=== PATIENT | male | born 1950 | race Caucasian/White ===

== ENCOUNTER 2017-12-29 05:43 | Emergency (ER) | payer MEDICARE, SELFPAY ==
[2017-12-29 05:44] VITALS: BP 162/104; PULSE 90; RESP 17; TEMP 36.8; O2SAT 96; BMI 29.9
--- NOTE | 2017-12-29 06:20 | ED.VISSUMM ---
- ER Visit Summary Date of Service: 12/29/17 Chief Complaint: [] Constipation History of Present Illness: The patient is a 67 M complaining of constipation and bloating for the last 3-1/2 days. Normally he has bowel movement 1-3 times per day. He has been on vacation and eating a different diet. He denies any significant abdominal pain. No nausea or vomiting. He feels like he has to have a bowel movement but cannot. He tried MiraLAX one time and one bottle of magnesium citrate yesterday p.m. with no relief. Physical Examination: Vital signs reviewed General: Well-nourished well-developed Head: Normocephalic atraumatic Eyes: Pupils equal round and reactive to light extraocular movements intact ENT: TMs clear no hemotympanum no trauma Neck: Nontender full range of motion Cardiovascular: Regular rate rhythm no murmurs normal S1-S2 Respiratory: No distress clear to auscultation bilaterally chest nontender Abdomen: Soft mild discomfort left lower abdomen nondistended normal bowel sounds no masses Back: Nontender no CVA tenderness Extremities: Nontender active range of motion ?4 extremities no trauma Skin: Normal color no trauma Neuro alert oriented cranial nerves II through XII intact normal strength sensation reflexes Test Results: [] Emergency Department Course and Treatment: [] Given soapsuds enema. Patient had a good bowel movement afterwards and will be discharged. He will continue MiraLAX as needed Treatment Plan: [] Disposition: [] Impression: [] Constipation This note was generated with [facility] dictation software. It may contain incorrect words, spelling, and punctuation that were not noted in review of the chart prior to signing ED Disposition - Plan for ED Patient: Disposition: Home or Assisted Living Chief Complaint: Constipation Instructions: ED Constipation Referrals: Tyler Espinosa DO [Primary Care Provider] -
[2017-12-29 06:27] VITALS: BP 153/78; PULSE 80; RESP 17; O2SAT 99
== END 2017-12-29 06:32 | disposition home or self-care (01) ==
LOC: ED 06:30
PROVIDERS: Emergency Provider Emergency Medicine; Family Provider Family Medicine; PCP Family Medicine
DX: K59.00 Constipation, unspecified (principal); Z86.73 Personal history of transient ischemic attack (TIA), and cerebral infarction without residual deficits
CPT/HCPCS: 99284

== ENCOUNTER → 2017-12-31 14:17 | Outpatient (CLI) | payer MEDICARE, SELFPAY ==
--- NOTE | 2017-12-31 14:21 | RAD_ITS ---
STUDY: X-RAY - ABDOMEN/PELVIS REASON FOR EXAM: Male, 67 years old. Constipation TECHNIQUE: Two AP supine views of the abdomen and pelvis. COMPARISON: None. FINDINGS: Normal visualized lung bases. There is an unremarkable bowel gas pattern. There is no demonstrated free abdominal air. The visualized liver, spleen and kidneys are grossly normal in size and morphology. Normal soft tissue structures. There are diffuse degenerative changes of the visualized lumbar spine. RAD/Abdomen Single View IMPRESSION: No significant amount of retained fecal material or obstruction. Electronically Signed: Mine Manzanares MD at 7:47 EST , Service support ,
== END ==
PROVIDERS: Family Provider Family Medicine; PCP Family Medicine; Visit Provider Family Medicine
DX: K59.00 Constipation, unspecified (principal)
CPT/HCPCS: 74018

== ENCOUNTER → 2018-10-07 15:39 | Outpatient (CLI) | payer MEDICARE, SELFPAY ==
[2018-10-07 17:41] LABS: Absolute Lymphocyte Count 2.61 X10^3/ul (0.83-4.51); Basophil# 0.04 X10^3/uL; Basophil% 0.4 % (0-1); Eosinophil# 0.21 X10^3/uL; Eosinophils% 2.2 % (0-5); Hematocrit 42.3 % (40-54); Hemoglobin 13.9 g/dl (13.0-16.5); Lymphocyte # 2.61 X10^3/ul (4.0); Lymphocyte % 27.2 % (19-41); Mean Corp Hgb Conc 32.9 g/gl (32-36); Mean Corpuscular Hgb 30.8 pg (27.0-32.0); Mean Corpuscular Volume 93.6 fL (80-94); Mean Platelet Vol. 10.8 fl (6.2-12.0); Monocyte# 0.72 X10^3/uL; Monocyte% 7.5 % (0-10); Neutrophil # 5.99 X10^3/uL (2.7-7.7); Neutrophil % 62.5 % (47-70); Platelet Count 236 K/mm3 (150-450); RBC Distribution Width CV 12.3 % (11.6-14.6); RBC Distribution Width SD 41.3 fl (35.1-43.9); Red Blood Count 4.52 M/mm3 (4.6-6.2); White Blood Count 9.6 K/mm3 (4.4-11.0)
[2018-10-07 17:42] LABS: Hemoglobin A1c 5.6 % (4.2-6.3)
[2018-10-07 17:43] LABS: POSITIVE COUNT NO; POSITIVE DIFFERENTIAL NO; POSITIVE MORPHOLOGY NO
[2018-10-07 17:50] LABS: ALB/GLOB Ratio 0.9 RATIO (0.9-2.4); AST(SGOT) 47 U/L (15-37); Alanine Aminotransfer ALT/SGPT 64 U/L (16-61); Albumin, Serum 3.7 g/dL (3.2-5.0); Alkaline Phosphatase 87 U/L (45-117); Anion Gap 10 (5-15); BUN 17 mg/dL (7-18); BUN/Creat Ratio 16.3 RATIO (10-20); Chloride 107 mmol/L (98-107); Cholesterol 166 mg/dL (200); Creatinine, Serum 1.04 mg/dL (0.70-1.30); EST Glomerular Filtration Rate 76 mL/min (>60); Est Glom Filt Rate - Afr Amer 92 mL/min (>60); Globulin 3.9 g/dL (2.2-4.2); Glucose 83 mg/dL (74-106); High Density Lipoprotein 37 mg/dL; PSA,Total - Annual Screen 1.05 ng/mL (0.00-4.00); Potassium 4.2 mmol/L (3.5-5.1); Protein, Total 7.6 g/dL (6.4-8.2); Sodium Level 142 mmol/L (136-145); T4 Free Direct 0.88 ng/dL (0.76-1.46); Thyroid Stim Hormone (TSH) 8.48 uIU/mL (0.358-3.74); Triglycerides 299 mg/dL; Very Low Density Lipoprotein 60 mg/dL (5-40)
--- OUTSIDE RECORDS SUMMARY | 2018-11-19 14:13 | XMS RPT_ITS ---
:1950 Author Organization OHIP Care Team Providers Name Role Phone Tyler Espinosa Primary Care Unavailable Tyson Booth Attending Unavailable Tyler Espinosa Attending Unavailable Tyler Espinosa Referring Unavailable Tyler Espinosa Primary Care Unavailable Michelle Ludwig Attending Unavailable Tyler Espinosa Referring Unavailable Tyler Espinosa Attending Unavailable Tyler Espinosa Primary Care Unavailable PROBLEMS PROBLEMS DATE TYPE CONDITION / CODE ATTENDING STATUS SOURCE 06/14/2018 Unknown Z02.1 - [facility] Rep[facility] Z02.1(ICD-10) 03/14/2018 Unknown K59.00 - [place], [facility] K59.00(ICD-10) Repository PROCEDURES PROCEDURES No Procedure Records FoundRESULTS RESULTS HEMOGLOBIN A1C Collected: 10/07/2018 Status: F Source: GAVI 3:46 PM [facility] REPOSITORY TYPE CODE TESTS RESULT OUT OF RANGE REFERENCE UNITS LAB L501.9985 4.2-6.3 % Normal HGB A1C 5.6 Performed By: #### L501.9985 #### [facility] [address] [place], [address] CBC W/DIFF, AUTOMATED Collected: 10/07/2018 Status: F Source: GAVI 3:46 PM [facility] REPOSITORY TYPE CODE TESTS RESULT OUT OF RANGE REFERENCE UNITS LAB L100.1000 4.4-11.0 K/mm3 Normal WBC 9.6 LAB L100.1200 4.6-6.2 M/mm3 Low RBC 4.52 LAB L100.1300 13.0-16.5 g/dl Normal HGB 13.9 LAB L100.1400 40-54 % Normal HCT 42.3 LAB L100.1500 80-94 fL Normal MCV 93.6 LAB L100.1600 27.0-32.0 pg Normal MCH 30.8 LAB L100.1700 32-36 g/gl Normal MCHC 32.9 LAB L100.1810 11.6-14.6 % Normal RDW CV 12.3 LAB L100.1820 35.1-43.9 fl Normal RDW SD 41.3 LAB L100.1900 150-450 K/mm3 Normal PLT 236 LAB L100.2000 6.2-12.0 fl Normal MPV 10.8 LAB L100.2100 47-70 % Normal NEUT% 62.5 LAB L100.2200 19-41 % Normal LY% 27.2 LAB L100.2300 0-10 % Normal MONO% 7.5 LAB L100.2400 0-5 % Normal EO% 2.2 LAB L100.2500 0-1 % Normal BASO% 0.4 LAB L100.2550 0.0-0.9 % Normal IM GRAN % 0.200 Result Comment: IG% - Immature Granulocytes (promyelocytes, myelocytes and metamyelocytes) > 1% indicates that a LEFT SHIFT is Present. LAB L100.2620 2.0-7.7 X10 3/uL Normal Absolute Neut 6.0 LAB L100.2720 0.83-4.51 X10 3/ul Normal Absolute Lymph 2.61 Performed By: #### L100.0100 #### [facility] [address] [place], [place], [address] COMPREHENSIVE METABOLIC Collected: 10/07/2018 Status: F Source: GAVI MARIE 3:46 PM [facility] REPOSITORY TYPE CODE TESTS RESULT OUT OF RANGE REFERENCE UNITS LAB L501.0100 74-106 mg/dL Normal GLU 83 Result Comment: Please note revised GLUCOSE reference range effective 2017. LAB L501.1000 7-18 mg/dL Normal BUN 17 LAB L501.1100 0.70-1.30 mg/dL Normal CREAT,SERUM 1.04 Result Comment: The validity of the calculated GFR AND GFRAA in patients over 70 years has not been determined. Clinical correlation is essential. LAB L501.1110 >60 mL/min Normal EST GFR 76 Result Comment: Non- GFR Calc LAB L501.1115 >60 mL/min Normal EST GFR - AA 92 Result Comment: GFR Calc LAB L501.1300 10-20 RATIO Normal BUN/CRE 16.3 LAB L501.1500 6.4-8.2 g/dL T Normal PROT 7.6 LAB L501.1800 3.2-5.0 g/dL Normal ALB 3.7 LAB L501.1950 2.2-4.2 g/dL Normal GLOB 3.9 LAB L501.2000 0.9-2.4 RATIO Normal A/G 0.9 LAB L501.2200 8.5-10.1 mg/dL CA Normal 9.0 LAB L501.4100 15-37 U/L High AST 47 LAB L501.4305 45-117 U/L Normal ALK P 87 LAB L501.4405 16-61 U/L High ALT 64 LAB L501.4600 0.20-1.00 mg/dL T Normal BILI 0.60 LAB L501.5300 136-145 mmol/L NA Normal 142 LAB L501.5600 3.5-5.1 mmol/L K Normal 4.2 LAB L501.5900 98-107 mmol/L CL Normal 107 LAB L501.6100 21.0-32.0 mmol/L Normal CO2 25.0 LAB L501.6200 5-15 Normal GAP 10 Performed By: #### L500.4050, L500.4100, L501.9520, L501.9910, L506.0400 #### [facility] [address] [place], [place], [id number] LIPID PROFILE Collected: 10/07/2018 Status: F Source: GAVI 3:46 PM [facility] REPOSITORY TYPE CODE TESTS RESULT OUT OF RANGE REFERENCE UNITS LAB L501.4900 200 mg/dL Normal CHOL 166 Result Comment: <200 mg/dL Desirable 200-240 mg/dL Borderline >240 mg/dL High Risk LAB L501.5000 mg/dL High TRIG 299 Result Comment: The drugs N-Acetylcysteine and Metamizole may falsely depress this assay. Serum Triglycerides Reference Interval Normal <150 mg/dL Borderline high 150 - 199 mg/dL High 200 - 499 mg/dL Very High > or = 500 mg/dL LAB L501.6400 mg/dL Low HDL 37 Result Comment: The drugs N-Acetylcysteine and Metamizole may falsely depress this assay. Reference Range HDL <40 mg/dL Low HDL Cholesterol HDL >or= 60 mg/dL High HDL Cholesterol LAB L501.6500 0-130 mg/dL Normal LDL 69 LAB L501.6600 5-40 mg/dL High VLDL 60 Performed By: #### L500.4050, L500.4100, L501.9520, L501.9910, L506.0400 #### [facility] [address] [place], [place], [id number] THYROID STIM HORMONE Collected: 10/07/2018 Status: F Source: GAVI (TSH) 3:46 PM [facility] REPOSITORY TYPE CODE TESTS RESULT OUT OF RANGE REFERENCE UNITS LAB L501.9520 0.358-3.74 uIU/mL High TSH 8.48 Performed By: #### L500.4050, L500.4100, L501.9520, L501.9910, L506.0400 #### [facility] [address] [place], [address] PSA,TOTAL - ANNUAL Collected: 10/07/2018 Status: F Source: GAVI SCREEN 3:46 PM [facility] REPOSITORY TYPE CODE TESTS RESULT OUT OF RANGE REFERENCE UNITS LAB L501.9910 0.00-4.00 ng/mL Normal PSA,TOT 1.05 SCREEN Result Comment: This test was performed using the TPSA assay method for the [employer] network chemistry system. Values obtained with different assay methods cannot be used interchangably. When changing PSA assays in the course of monitoring a patient, additional sequential testing should be carried out to confirm baseline values. Performed By: #### L500.4050, L500.4100, L501.9520, L501.9910, L506.0400 #### [facility] [address] [place], [place], [address] T4 FREE DIRECT Collected: 10/07/2018 Status: F Source: [place] 3:46 PM [facility] REPOSITORY TYPE CODE TESTS RESULT OUT OF RANGE REFERENCE UNITS LAB L506.0400 0.76-1.46 ng/dL Normal T4 FREE 0.88 DIRECT Performed By: #### L500.4050, L500.4100, L501.9520, L501.9910, L506.0400 #### [facility] [address] [place], [place], [address] URGENT CARE VISIT Observed: 06/14/2018 Status: F Source: [place] REPORT 2:34 PM [facility] REPOSITORY [facility] [address] [place] [address] OFFICE VISIT Date of Service: 06/14/18 MR#: [id number] Acct: [id number] Name: SHAWNQUITAVIVIENNE Rep #: [id number] : 1950 Provider: MANDEEP Ludwig Age/Sex: 67/M [place] [facility] Status: Signed Intake Intake Visit Reasons: PRE [facility] Chief Complaint: pre-employment physical Allergies No Known Allergies Allergy (Verified 06/15/17 11:28) Medications Atorvastatin Calcium [Lipitor] 40 mg PO QHS #90 tab 01/20/16 [Rx Confirmed 06/15/17] Aspirin [Aspirin, Baby] 81 mg PO DAILY 06/15/17 [History Confirmed 06/15/17] Blue-Green Algae [Spirulina] 6 tab PO DAILY 06/15/17 [History Confirmed 06/15/17] Co Q10 200 [Co Q-10] 100 mg PO DAILY 06/15/17 [History Confirmed 06/15/17] Lactobacillus Combo No.11 [Probiotic] 1 ea PO QHS 06/15/17 [History Confirmed 06/15/17] Levothyroxine [Synthroid] 100 mcg PO DAILY 06/15/17 [History Confirmed 06/15/17] Lisinopril [Zestril] 10 mg PO DAILY 06/15/17 [History Confirmed 06/15/17] Multivitamin [Multiple Vitamins] 1 ea PO DAILY 06/15/17 [History Confirmed 06/15/17] Super Beta Prostate 1 tab PO DAILY 06/15/17 [History] Turmeric/Turmeric Root Extract [Turmeric] 200 mg PO DAILY 06/15/17 [History Confirmed 06/15/17] PFSH Social History Smoking Status: Never smoker HPI HPI Chief Complaint: pre-employment physical Details: VIVIENNE ROMERO, is a 67 M who presents to the office today for a pre-employment physical. Please see completed history and physical forms scanned to his chart. Office Procedures Physical Exam Coding PE Coding Pre-employment PE: Yes Assessment AND Plan Problems 1. Pre-employment examination Z02.1 Plan Patient is cleared for work without restrictions. 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 He worked up until 2 years ago and then took time off after a family crisis until now. Coding Level of Care Code No Charge Diagnoses Pre-employment examination Z02.1 Additional Codes PE Coding - Pre-employment PE: Yes (PREPE) 06/14/18 1434 <Electronically signed by Michelle KAUFMAN> Date Michelle KAUFMAN Cosigner Signature: Date (if applicable) CC: ABDOMEN SINGLE VIEW Observed: 12/31/2017 Status: F Source: GAVI 2:21 PM [facility] REPOSITORY [facility] Imaging Services [address] [place] [address] [place] [address] Abdomen Single View MR#: [id number] Acct: [id number] Name: VIVIENNE ROMERO Rep #: [id number] : 1950 M 67 From: Mine Manzanares MD PCP: Tyler Espinosa DO Status: REG CLI Study: Abdomen Single View Date of Exam: 12/31/17 Exam# [id number] Ordering Dr: Tyler Espinosa DO STUDY: X-RAY - ABDOMEN/PELVIS REASON FOR EXAM: Male, 67 years old. Constipation TECHNIQUE: Two AP supine views of the abdomen and pelvis. COMPARISON: None. FINDINGS: Normal visualized lung bases. There is an unremarkable bowel gas pattern. There is no demonstrated free abdominal air. The visualized liver, spleen and kidneys are grossly normal in size and morphology. Normal soft tissue structures. There are diffuse degenerative changes of the visualized lumbar spine. RAD/Abdomen Single View IMPRESSION: No significant amount of retained fecal material or obstruction. Electronically Signed: Mine Manzanares MD at 7:47 EST , Service support , CC: Tyler Espinosa DO Finish Specialist: Signed EMERGENCY DEPARTMENT Observed: 12/29/2017 Status: F Source: [place] SUMMARY 6:58 AM [facility] Medical Records Department [address] [place] [address] Emergency Department Summary 12/29/17 0620 MR#: [id number] Acct: [id number] Name: VIVIENNE ROMERO Rep #: [id number] : 1950 67 From: Tyson Booth MD PCP: Tyler Espinosa DO Status: DEP ER - ER Visit Summary Date of Service: 12/29/17 Chief Complaint: [] Constipation History of Present Illness: The patient is a 67 M complaining of constipation and bloating for the last 3-1/2 days. Normally he has bowel movement 1-3 times per day. He has been on vacation and eating a different diet. He denies any significant abdominal pain. No nausea or vomiting. He feels like he has to have a bowel movement but cannot. He tried MiraLAX one time and one bottle of magnesium citrate yesterday p.m. with no relief. Physical Examination: Vital signs reviewed General: Well-nourished well-developed Head: Normocephalic atraumatic Eyes: Pupils equal round and reactive to light extraocular movements intact ENT: TMs clear no hemotympanum no trauma Neck: Nontender full range of motion Cardiovascular: Regular rate rhythm no murmurs normal S1-S2 Respiratory: No distress clear to auscultation bilaterally chest nontender Abdomen: Soft mild discomfort left lower abdomen nondistended normal bowel sounds no masses Back: Nontender no CVA tenderness Extremities: Nontender active range of motion 4 extremities no trauma Skin: Normal color no trauma Neuro alert oriented cranial nerves II through XII intact normal strength sensation reflexes Test Results: [] Emergency Department Course and Treatment: [] Given soapsuds enema. Patient had a good bowel movement afterwards and will be discharged. He will continue MiraLAX as needed Treatment Plan: [] Disposition: [] Impression: [] Constipation This note was generated with [employer] dictation software. It may contain incorrect words, spelling, and punctuation that were not noted in review of the chart prior to signing ED Disposition - Plan for ED Patient: Disposition: Home or Assisted Living Chief Complaint: Constipation Instructions: ED Constipation Referrals: Tyler Espinosa, DO [Primary Care Provider] - What to do if you have Problems For any increased pain, shortness of breath, bleeding, nausea or vomiting, chest pain, or any unexpected problems, contact your Primary Care Provider. Call [facility] ([phone]) or report to the closest Emergency Room. Call 911 if necessary. 12/29/17 0658 <Electronically signed by Tyson Booth MD> Date Tyson Booth MD Cosigner Signature (If Indicated): Date CC: Tyler Espinosa DO DISCHARGE INSTRUCTION Observed: 12/29/2017 Status: F Source: GAVI 6:58 AM [facility] REPOSITORY [facility] Medical Records Department [address] [address] Discharge Instruction 12/29/17620 MR#: [id number] Acct: [id number] Name: VIVIENNE ROMERO Rep #: [id number] : 1950 67 From: Tyson Booth MD PCP: Tyler Espinosa DO Status: DEP ER ED Disposition - Plan for ED Patient: Disposition: Home or Assisted Living Chief Complaint: Constipation Instructions: ED Constipation Referrals: Tyler Espinosa DO [Primary Care Provider] - What to do if you have Problems For any increased pain, shortness of breath, bleeding, nausea or vomiting, chest pain, or any unexpected problems, contact your Primary Care Provider. Call [facility] ([phone]) or report to the closest Emergency Room. Call 911 if necessary. 12/29/1758 <Electronically signed by Tyson Booth MD> Date Tyson Booth MD Cosigner Signature (If Indicated): Date CC: Tyler Espinosa DO ALLERGIES ALLERGIES DATE TYPE / CODE NAME / CODE REACTION SEVERITY SOURCE 06/15/2017 Drug No Known Unknown [facility] Allergy/4160 Allergies/F00 Hospital 96942(SNOMED 4075119(RXNOR Repository CT) M) ENCOUNTERS ENCOUNTERS ADMIT/DISCHARGE ACCOUNT ADMITTING ENCOUNTER LOCATION SOURCE NUMBER CLASS 10/07/2018 [id number] [facility] ing:LAB.FUTUR Repository E 06/14/2018/ [id number] [facility] [facility] Repository 12/31/2017 [id number] Ambulatory [facility] [place] [facility] ing:MTRAD Repository 12/29/2017/ [id number] Emergency [facility] [place] [address] [facility] ing:ED Repository PAYERS PAYERS ENCOUNTER GUARANTOR PAYER SUBSCRIBER SOURCE 10/07/2018 VIVIENNE D Primary VIVIENNE D [facility] [id number] Insurance:HUMANA GODBEYDOB: Community [address] MEDIC[id number] Repository [id number]: [phone] [id number] [phone] (HP) Date:[id number] [address] [address]WX: 10/07/2018 Secondary NOT GIVENUNK [place] Insurance:SELF PAY [facility] Number: Effective Repository Date:2018-09-30 06/14/2018 VIVIENNE D Primary NOT GIVENUNK [place] [id number] Insurance:SELF PAY [facility] [place] Number: Effective Repository [phone]: [phone]) Date:2018-06-14 [phone] (HP) 12/31/2017 Vivienne D Primary Vivienne D [place] [id number] Insurance:HUMANA GodbeyDOB: Community [place] MEDICARE PPOPolicy [id number] [place] Number: Repository [id number]: [id number] [phone] (HP) Date:[id number] [address] [address]IC: 12/31/2017 Secondary NOT GIVENUNK [facility] Insurance:SELF PAY [facility] Number: Effective Repository Date:2017-12-31 12/29/2017 Vivienne D Primary Vivienne D [facility] [id number] Insurance:HUMANA GodbeyDOB: Community [place] MEDICARE PPOPolicy [id number] Number: Repository [id number]: [id number] [phone] (HP) Date:[id number] [address], [place] [address]ST: 12/29/2017 Secondary NOT GIVENUNK [facility] Insurance:SELF PAY [facility] Number: Effective Repository Date:2017-12-29
== END ==
PROVIDERS: Family Provider Family Medicine; PCP Family Medicine; Visit Provider Family Medicine
DX: Z00.00 Encounter for general adult medical examination without abnormal findings (principal); I10 Essential (primary) hypertension; E03.9 Hypothyroidism, unspecified; E78.5 Hyperlipidemia, unspecified; R73.01 Impaired fasting glucose; Z12.5 Encounter for screening for malignant neoplasm of prostate
CPT/HCPCS: 36415; 80053; 80061; 83036; 84153; 84439; 84443; 85025; G0103

== ENCOUNTER → 2018-12-14 07:08 | Outpatient (CLI) | payer MEDICARE, SELFPAY ==
[2018-12-14 08:37] LABS: AST(SGOT) 28 U/L (15-37); Alanine Aminotransfer ALT/SGPT 43 U/L (16-61); Albumin, Serum 3.4 g/dL (3.2-5.0); Alkaline Phosphatase 79 U/L (45-117); Bilirubin, Direct 0.16 mg/dL (0.00-0.30); Cholesterol 129 mg/dL (200); Globulin 3.6 g/dL (2.2-4.2); High Density Lipoprotein 28 mg/dL; T4 Free Direct 1.01 ng/dL (0.76-1.46); Thyroid Stim Hormone (TSH) 0.27 uIU/mL (0.358-3.74); Triglycerides 202 mg/dL; Very Low Density Lipoprotein 40 mg/dL (5-40)
[2018-12-17 09:38] LABS: Testosterone, Free 3.64 ng/dL (5.00-21.00)
[2018-12-17 13:15] LABS: Testosterone, % Free 1.59 % (1.50-4.20); Testosterone, Total 229 ng/dL (264-916)
== END ==
PROVIDERS: Family Provider Family Medicine; PCP Family Medicine; Referring Provider Family Medicine; Visit Provider Family Medicine
DX: E78.5 Hyperlipidemia, unspecified (principal); E03.9 Hypothyroidism, unspecified; R53.83 Other fatigue; R74.8 Abnormal levels of other serum enzymes; N52.9 Male erectile dysfunction, unspecified
CPT/HCPCS: 36415; 80061; 80076; 84402; 84403; 84439; 84443

== ENCOUNTER 2019-05-22 13:07 | Emergency (ER) | payer MEDICARE, SELFPAY ==
[2019-05-22 13:08] VITALS: BP 127/68; PULSE 81; RESP 16; TEMP 36.7; O2SAT 95; BMI 31.4
[2019-05-22 13:43] VITALS: BP 117/85; PULSE 72; RESP 16; O2SAT 98
--- NOTE | 2019-05-22 13:56 | ED.DCSUM_ITS ---
History of Present Illness Chief Complaint: Allergic Reaction Detail of Chief Complaint: bee sting Informant: Patient Onset: Yesterday Context: Gradual Onset Timing: Continuous Quality: red, swollen, itchy Location: RUE Current Severity: Moderate Maximum Severity: Moderate Worsened by: nothing Relieved by: topical benadryl cream/gel Associated Symptoms: none Narrative: Patient sent here by urgent care according to the patient. He has never had a bee sting allergy before. He currently is on amoxicillin because he recently had oral surgery, his mouth is doing well. He grabbed a plant and was accidentally stung by a bee that he did not see until after it stung him in the right hand/palm. He subsequently started to have some itching later that evening that responded well to Benadryl cream topically. Now his hand is more swollen, the redness is going up to his wrist and there is a streak up his forearm. Denies any pain. No itching. No shortness of breath, or swelling away from the sting such as left upper extremity, feet. No lightheadedness or other systemic symptoms. - Past Medical History (1) Hypothyroidism Status: Chronic (2) History of TIA (transient ischemic attack) Status: Chronic (3) History of cerebellar stroke Status: Chronic Past Medical History - Allergies and Home Meds Allergies/Adverse Reactions: Allergies No Known Allergies Allergy (Verified 05/22/19 13:08) Primary Care Physician: Tyler Espinosa DO [Primary Care Provider] - Surgical History: herniorrhaphy Smoking Status: Former smoker Drugs: None - Family History Maternal Family History: Reports: Cancer, Hypertension, Stroke - age 47 Paternal Family History: Reports: Cancer - age 75 Review of Systems General: Denies: Chills, Fever Eyes: Denies: Blurred Vision - bilaterally, Diplopia Respiratory: Denies: Dyspnea, Dyspnea on exertion Gastrointestinal: Denies: Nausea, Vomiting Musculoskeletal: Reports: Swelling - Localized right upper extremity only. Denies: Extremity Pain Skin: Reports: - - Nonpainful right hand sting site. Erythema. Swelling. Neurological: Denies: Weakness, Numbness Physical Exam Vital Signs/Narrative: Vital Signs Temp Pulse Resp BP Pulse Ox 05/22/19 13:43 72 16 117/85 H 98 05/22/19 13:08 98.1 F 81 16 127/68 H 95 Inital Vital Signs reviewed: Yes General: Well nourished, Well developed, No Acute Distress Head: Normocephalic, Atraumatic Extremities: Nontender, Edema - Right hand and wrist. Full range of motion throughout the fingers and wrist without any pain. Skin: No Trauma, - - Blanching erythematous localized swelling to right hand and volar right wrist with possibly faint lymphangitis that goes to the antecubital fossa but not beyond. No palpable epitrochlear or axillary lymphadenopathy. No abscess. Neurological: Alert, Oriented x3, Cranial nerves II-XII grossly intact, Normal Strength, Normal Sensation, Normal Gait Psychological: Normal affect, Normal Mood Diagnostic/Tx/Re-eval - Medical Decision Making Reassured this is very likely to be a localized allergic reaction. I do not think this is cellulitis. He has no pain, and a lymphangitis, which is very faint, is not tender. Given prednisone, he currently is on antibiotics which are not indicated for this in particular, but he should continue them for his recent oral surgery per his doctor, will prescribe him 3 more days of prednisone and advised to return for any worsening or systemic symptoms. He is comfortable with that plan. 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
[2019-05-22] MEDS: predniSONE 20 MG Tablet 40 MG PO (14:05)
== END 2019-05-22 14:15 | disposition home or self-care (01) ==
LOC: ED 14:09
PROVIDERS: Emergency Provider Emergency Medicine; Family Provider Family Medicine; PCP Family Medicine
DX: T63.441A Toxic effect of venom of bees, accidental (unintentional), initial encounter (principal); M79.89 Other specified soft tissue disorders; L29.9 Pruritus, unspecified; Z86.73 Personal history of transient ischemic attack (TIA), and cerebral infarction without residual deficits; Z87.891 Personal history of nicotine dependence
CPT/HCPCS: 99283

== ENCOUNTER → 2019-06-11 | Outpatient (CLI) | payer MEDICARE, SELFPAY ==
[2019-05-22 13:08] VITALS: BMI 31.4
[2019-06-11 09:20] LABS: ALB/GLOB Ratio 0.9 RATIO (0.9-2.4); AST(SGOT) 34 U/L (15-37); Alanine Aminotransfer ALT/SGPT 45 U/L (16-61); Albumin, Serum 3.6 g/dL (3.2-5.0); Alkaline Phosphatase 100 U/L (45-117); Anion Gap 3 (5-15); BUN 12 mg/dL (7-18); Calcium,Total 8.4 mg/dL (8.5-10.1); Chloride 105 mmol/L (98-107); Cholesterol 174 mg/dL (200); EST Glomerular Filtration Rate 79 mL/min (>60); Est Glom Filt Rate - Afr Amer 96 mL/min (>60); Glucose 113 mg/dL (74-106); High Density Lipoprotein 39 mg/dL; Potassium 3.8 mmol/L (3.5-5.1); Protein, Total 7.6 g/dL (6.4-8.2); Sodium Level 138 mmol/L (136-145); T4 Free Direct 0.79 ng/dL (0.76-1.46); Thyroid Stim Hormone (TSH) 3.64 uIU/mL (0.358-3.74); Triglycerides 245 mg/dL; Very Low Density Lipoprotein 49 mg/dL (5-40)
[2019-06-14 14:07] LABS: Testosterone, Free 6.96 ng/dL (5.00-21.00)
[2019-06-16 10:25] LABS: Testosterone, % Free 2.75 % (1.50-4.20); Testosterone, Total 253 ng/dL (264-916)
== END | disposition home or self-care (01) ==
LOC: LAB.FUTURE 08:09
PROVIDERS: Family Provider Family Medicine; PCP Family Medicine; Referring Provider Family Medicine; Visit Provider Family Medicine
DX: E03.9 Hypothyroidism, unspecified (principal); E78.5 Hyperlipidemia, unspecified; E29.1 Testicular hypofunction; I10 Essential (primary) hypertension
CPT/HCPCS: 36415; 80053; 80061; 84402; 84403; 84439; 84443

== ENCOUNTER → 2019-11-14 09:30 | Outpatient (CLI) | payer MEDICARE, SELFPAY ==
[2019-11-14 13:07] LABS: Uric Acid 7.1 mg/dL (3.5-7.2)
== END ==
PROVIDERS: Family Provider Family Medicine; PCP Family Medicine; Visit Provider Family Medicine
DX: M10.9 Gout, unspecified (principal)
CPT/HCPCS: 36415; 84550